=== PATIENT | female | born 1940 | race Caucasian/White ===

== ENCOUNTER 2017-07-12 13:44 | Outpatient (CLI) | payer MEDICARE ==
--- OUTSIDE RECORDS SUMMARY | 2017-07-12 13:46 | XMS | Clinical Summary ---
:1940 Author Organization [facility] Address [address] [place] [address] Phone Care Team Providers Name Role Phone , Primary Care Provider Unavailable Allergies Not on File Current Medications Not on file Active Problems Not on file Social History Tobacco Use Types Packs/Day Years Used Date Never Assessed Sex Assigned at Date Recorded Not on file Last Filed Vital Signs Not on file Plan of Treatment Not on file Results Not on filefrom Last 3 Months
--- NOTE | 2017-07-27 15:07 | MMO ---
BILATERAL SCREENING MAMMOGRAM: Indication: Annual exam. Comparison: None available. This examination with serve as patient's new baseline exam. FINDINGS: This study is interpreted with the assistance of computer aided detection. There are scattered fibroglandular elements bilaterally. There are benign appearing calcifications bilaterally. No suspicious mass or cluster of microcalcifications or architectural distortion is evident. IMPRESSION: BIRADS category 2 - benign findings. Annual screening recommended. POS: [facility]
== END 2017-07-12 13:45 | disposition home or self-care (01) ==
LOC: SCSMAMMO 13:44
PROVIDERS: ATTEND Family Medicine
DX: Z12.31 Encounter for screening mammogram for malignant neoplasm of breast (principal)
CPT/HCPCS: 77067; G0202

== ENCOUNTER 2018-02-06 14:05 | Outpatient (CLI) | payer MEDICARE ==
--- NOTE | 2018-02-06 17:48 | MRI ---
PRE AND POST CONTRAST ENHANCED MRI BRAIN: HISTORY: Headache (R51). TECHNIQUE: Pre and post contrast enhanced MRI brain obtained. FINDINGS: Images demonstrate no evidence of areas of diffusion restriction. No evidence of intracranial mass l esions seen. 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 No evidence of abnormal areas of intracranial enhancement seen. No other significant intracranial abnormalities noted. IMPRESSION: Left-sided choroidal fissure cyst; otherwise unremarkable pre and post contrast enhanced MRI brain. POS: [facility]
== END 2018-02-06 14:06 | disposition home or self-care (01) ==
LOC: SCSMRI 14:05
PROVIDERS: ATTEND Psychiatry & Neurology Neurology
DX: R51 Headache (principal); G93.0 Cerebral cysts
CPT/HCPCS: 70553; 82565

== ENCOUNTER 2019-02-20 12:44 | Outpatient (CLI) | payer MEDICARE ==
--- NOTE | 2019-02-20 13:09 | MMO ---
Bilateral MAMMO Bilat Screen DDI. CLINICAL HISTORY: Patient is 78 years old and is seen for screening. The patient has no family history of breast cancer. The patient has no personal history of cancer. VIEWS: The views performed were: bilateral craniocaudal and bilateral mediolateral oblique. FILMS COMPARED: The present examination has been compared to a prior imaging study performed at [facility] on 07/12/2017. This study has been interpreted with the assistance of computer-aided detection. MAMMOGRAM FINDINGS: There are scattered fibroglandular densities. There are no suspicious masses, suspicious calcifications, or new areas of architectural distortion. IMPRESSION: THERE IS NO MAMMOGRAPHIC EVIDENCE OF MALIGNANCY. A ROUTINE FOLLOW-UP MAMMOGRAM IN 1 YEAR IS RECOMMENDED. ACR BI-RADS Category 1 - Negative MAMMOGRAPHY NOTE: 1. A negative mammogram report should not delay a biopsy if a dominant of clinically suspicious mass is present. 2. Approximately 10% to 15% of breast cancers are not detected by mammography. 3. Adenosis and dense breasts may obscure an underlying neoplasm.
== END 2019-02-20 12:45 | disposition home or self-care (01) ==
LOC: SCSMAMMO 12:44
PROVIDERS: ATTEND Family Medicine
DX: Z12.31 Encounter for screening mammogram for malignant neoplasm of breast (principal)
CPT/HCPCS: 77067

== ENCOUNTER 2019-06-04 18:48 | Observation (INO) | payer MEDICARE ==
[2019-06-04] MEDS ORDERED: methylPREDNISolone Sod Succ/PF 125 MG/2 ML VIAL ONE ×2 (21:10→21:21)
--- NOTE | 2019-06-04 21:38 | CT ---
CT Chest WO Con: 06/04/2019 12:00 AM CLINICAL INDICATION: Productive cough. COMPARISON: None.. FINDINGS: Lung and Large Airways: There are areas of subsegmental volume loss within the right middle lobe, bot h lower lobes and lingula. There are no suspicious pulmonary nodules. There are sub-4 mm pulmonary nodules within the right lower lobe. Pleura: No effusion or mass. Vessels: There are scattered vascular calcifications involving thoracic aorta. Heart: Normal appearing. No pericardial effusion.. Mediastinum and Eli: The lack of IV contrast limits evaluation of the hilar regions. No definite enl arged mediastinal or axillary lymphadenopathy is evident. There is small hiatal hernia. Chest Wall and Lower Neck: Normal. Upper Abdomen: No acute abnormality. Bones: There is no acute fracture or subluxation. There is scattered degenerative and osteoarthritic change present. IMPRESSION: Scattered areas of nonspecific subsegmental volume loss. No airspace consolidation is evident.
[2019-06-05] MEDS ORDERED: Ondansetron ODT 4 MG TAB SL PRN (01:29)
[2019-06-05] MEDS ORDERED: Ondansetron PF 4 MG/2 ML Vial IVP PRN (01:29)
[2019-06-05] MEDS ORDERED: Bacteriostatic Water 30 ML VIAL FS PRN (01:30)
[2019-06-05 01:40] VITALS: BMI 31.5
[2019-06-05] MEDS ORDERED: Ibuprofen 200 MG TAB PO SCH (02:00)
[2019-06-05] MEDS ORDERED: Ibuprofen 200 MG TAB PO PRN (03:10)
[2019-06-05] MEDS ORDERED: Melatonin 3 MG TAB PO PRN (03:13)
[2019-06-05 05:11] LABS: #Lymphocytes 0.8 thou/uL (1.20-3.40); #Monocytes 0.3 thou/uL (0.11-0.59); #Neutrophils 7.1 thou/uL (1.40-6.50); %Eosinophils 0.3 % (0.0-10.0); %Lymphocytes 10.1 % (21.0-51.0); %Monocytes 3.2 % (0.0-10.0); %Neutrophils 86.3 % (42.0-75.0); Hemoglobin 12.9 g/dL (12.0-16.0); Mean Corpuscular Hemoglobin 31.1 pg (27.0-31.0); Mean Corpuscular Volume 91.4 fL (78.0-98.0); Mean Platelet Volume 8.8 fL (7.4-10.4); Platelet Count 222 thou/uL (130-400); RBC Distribution Width 12.8 % (11.5-14.5); Red Blood Cell (RBC) Count 4.16 mill/uL (4.20-5.40); White Blood Cell (WBC) Count 8.2 thou/uL (4.8-10.8)
[2019-06-05] MEDS: Levothyroxine 150 MCG TAB PO SCH (05:23)
[2019-06-05] MEDS: methylPREDNISolone Sod Succ 40 MG VIAL IVP SCH ×4 (05:25→23:42)
[2019-06-05 05:32] LABS: Anion Gap 18 mmol/L (10-20); BUN (Urea Nitrogen) 25 mg/dL (9.8-20.1); Calc. Creatinine Clearance 52 mL/min (70-130); Calcium 8.9 mg/dL (7.8-10.44); Carbon Dioxide 20 mmol/L (23-31); Chloride 98 mmol/L (98-107); Estimated GFR-MDRD 42; Glucose 239 mg/dL (83-110); Potassium 3.9 mmol/L (3.5-5.1); Sodium 132 mmol/L (136-145)
--- NOTE | 2019-06-05 07:32 | HP ---
PRIMARY CARE DOCTOR: Florencio Wright DO. CODE STATUS: Full code. TIME OF EVALUATION: 3 a.m. CHIEF COMPLAINT: Shortness of breath and worsening cough. HISTORY OF PRESENT ILLNESS: A 79 years old female patient, with past medical history of asthma, GERD, hypertension, hypothyroidism, sleep apnea, previous PE, osteoarthritis, and neuropathy; came to the hospital after having severe gradually worsening shortness of breath associated with epigastric chest pain that was worsened when she coughed. Symptoms have been present for the past 3 days and has been gradually getting worse. She was seen by Dr. Wright today and sent back to the for further evaluation and treatment. REVIEW OF SYSTEMS: All systems reviewed were negative except for the findings mentioned above. PAST MEDICAL HISTORY: As mentioned in the HPI. PAST SURGICAL HISTORY: Bilateral foot, left knee, back, cholecystectomy, hernia repair, hysterectomy, and tonsillectomy surgery. PSYCH HISTORY: Anxiety and depression. SOCIAL HISTORY: No drug use. No alcohol use. The patient is a former cigarette smoker, the patient quit more than 10 years ago. KNOWN ALLERGIES: Adhesive tape, Ultram, penicillins, and Tylenol. FAMILY HISTORY:Reviewed and non contributory to current presentation. REPORTED MEDICATIONS: Please see transfer papers for details. PHYSICAL EXAMINATION: VITAL SIGNS: On presentation, oxygen saturation 93% on room air, blood pressure 115/69 with heart rate 77, respiratory rate was 16, temperature 98.1. Pain was 7/10. Oxygen saturation was 96% on 2 L oxygen. GENERAL APPEARANCE: The patient is alert, oriented, not in acute distress. HEENT: Eyes; normal conjunctivae, moist oral mucosa. Anicteric. No JVD. RESPIRATORY: The patient has cough with rales that are scattered, and wheezing. Bilateral air entry is and audible. CARDIOVASCULAR: Normal rate, regular rhythm. No murmurs. No gallop. No edema. ABDOMEN: Soft, normal bowel sounds. MUSCULOSKELETAL: Baseline range of motion and strength. SKIN: Warm, intact. No pallor. No rash. No redness. Capillary refill seems to be intact. NEURO: No evidence of any new focal weakness. Cranial nerves seems to be intact. PSYCH: The patient is in good mood. No anxiety. Optimal judgment. IMAGING STUDIES: Chest AP view showed no acute cardiopulmonary abnormalities. Chest CT showed scattered areas of nonspecific subsegmental volume loss. No airspace consolidation is evident. LABORATORY DATA: Transfer papers were reviewed. Labs showed white count 11.1, hemoglobin 13.4, MCV 91, platelet count 287. CMP; sodium 134, potassium 3.7, chloride 95, carbon dioxide 28, anion gap 15, glucose 154, BUN 23, creatinine 1.7. Glomerular filtration rate is 31. ASSESSMENT AND PLAN: The patient will be placed in the hospital with following medical problems; 1. Possible chronic obstructive pulmonary disease exacerbation. The patient has a history of asthma. The patient got some antibiotics and it improves. Chest x- ray is clean. The patient will be started on nebs, steroids, and antibiotics. The patient has a V/Q scheduled for the morning that will be done. The CT chest did not show any significant abnormalities. The patient does have some pulmonary nodules and this can be followed as outpatient. We will give her oxygen support as needed. 2. The patient has a history of sleep apnea. We will place the patient on CPAP to sleep if needed. 3. Elevated D-dimer. The patient is going for V/Q and we will follow and treat accordingly. The patient really got one dose of Lovenox prior to transfer. 4. Controlled hypertension, reconcile home medications, adjust as needed. 5. Hypothyroidism. Continue hormone replacement. 6. Osteoarthritis. Reconcile home medications. 7. History of one pulmonary embolism in the past. The patient is not on any blood thinners. There is a risk for pulmonary embolism, that is why the patient is going for a V/Q. 8. Gastroesophageal reflux disease. Reconcile home medications. 9. Deep venous thrombosis prophylaxis. Job ID: [id number] [facility]
[2019-06-05] MEDS: Amlodipine 5 MG TAB PO SCH (08:32)
[2019-06-05] MEDS: Aspirin 81 mg Enteric Coated Tablet PO SCH (08:32)
[2019-06-05] MEDS: CeleCOXIB 100 MG CAP PO SCH (08:32)
[2019-06-05] MEDS: Cholestyramine/Aspartame 4 gm Packet PO SCH (08:33)
[2019-06-05] MEDS: DULoxetine 60 MG CAP PO SCH (08:34)
[2019-06-05] MEDS: Loratadine 10 MG TAB PO SCH (08:34)
[2019-06-05] MEDS: Triamterene/Hydrochlorothiazide 37.5 mg/25 mg Tablet PO SCH (08:34)
[2019-06-05] MEDS: Gabapentin 300 MG CAP PO SCH ×2 (08:34→22:14)
[2019-06-05] MEDS: Montelukast Sodium 10 mg Tablet PO SCH (08:34)
[2019-06-05] MEDS ORDERED: SODIUM BICARBONATE PO SCH (09:00)
[2019-06-05] MEDS ORDERED: MILNACIPRAN HCL 25 MG PO SCH (09:00)
[2019-06-05] MEDS ORDERED: OMEPRAZOLE PO SCH (09:00)
--- NOTE | 2019-06-05 11:35 | NM ---
VQ SCAN: DATE: 06/05/19 HISTORY: COPD exacerbation. TECHNIQUE: A ventilation perfusion scan was performed using 11.2 mCi Xenon-133 by inhalation for the ventilation scan, followed by the intravenous administration of 6 mCi technetium-99m MAA for the perfusion scan. FINDINGS: Correlation is made with the previous day's chest x-ray. Fairly homogeneous tracer distribution is seen in both lungs on the ventilation perfusion scans witho ut mismatched, pleural based, wedge-shaped, segmental or subsegmental perfusion defects. There is tra cer retention in the lungs bilaterally on the washout phase of the ventilation scan consistent with C OPD. IMPRESSION: Very low probability for pulmonary embolism. POS: [facility]
[2019-06-05] MEDS ORDERED: Zolpidem Tartrate 5 MG TAB PO SCH (21:00)
[2019-06-05] MEDS ORDERED: Losartan 25 MG TAB PO SCH (21:00)
[2019-06-06] MEDS: Levothyroxine 150 MCG TAB PO SCH (05:13)
[2019-06-06] MEDS: methylPREDNISolone Sod Succ 40 MG VIAL IVP SCH (05:13)
[2019-06-06] MEDS: Aspirin 81 mg Enteric Coated Tablet PO SCH (09:05)
[2019-06-06] MEDS: Amlodipine 5 MG TAB PO SCH (09:05)
[2019-06-06] MEDS: CeleCOXIB 100 MG CAP PO SCH (09:05)
[2019-06-06] MEDS: Cholestyramine/Aspartame 4 gm Packet PO SCH (09:06)
[2019-06-06] MEDS: Montelukast Sodium 10 mg Tablet PO SCH (09:06)
[2019-06-06] MEDS: Gabapentin 300 MG CAP PO SCH (09:06)
[2019-06-06] MEDS: DULoxetine 60 MG CAP PO SCH (09:06)
[2019-06-06] MEDS: Loratadine 10 MG TAB PO SCH (09:06)
[2019-06-06] MEDS: Triamterene/Hydrochlorothiazide 37.5 mg/25 mg Tablet PO SCH (09:07)
[2019-06-06 12:22] VITALS: BP 127/60; TEMP 97.8
--- NOTE | 2019-06-09 15:01 | EKG ---
Test Reason : Blood Pressure : / mmHG Vent. Rate : 077 BPM Atrial Rate : 077 BPM P-R Int : 148 ms QRS Dur : 072 ms QT Int : 414 ms P-R-T Axes : 015 -14 011 degrees QTc Int : 468 ms Normal sinus rhythm Normal ECG Confirmed by MEGHA MELENDEZ ([id number]), supervising editor trailer RAMONE RASHID ([id number]) on 06/09/2019 3:01:32 PM Referred By: Confirmed By:MEGHA MELENDEZ
== END 2019-06-06 13:52 | disposition home or self-care (01) ==
LOC: ERS 18:48 → 2SW 23:05
PROVIDERS: ADMIT Hospitalist; ATTEND Hospitalist
DX: R06.02 Shortness of breath (principal); R05 Cough; I10 Essential (primary) hypertension; E03.9 Hypothyroidism, unspecified; G47.30 Sleep apnea, unspecified; K21.9 Gastro-esophageal reflux disease without esophagitis; M19.90 Unspecified osteoarthritis, unspecified site; G62.9 Polyneuropathy, unspecified; F41.8 Other specified anxiety disorders; F32.9 Major depressive disorder, single episode, unspecified; J45.909 Unspecified asthma, uncomplicated; Z87.891 Personal history of nicotine dependence; Z88.0 Allergy status to penicillin; Z88.5 Allergy status to narcotic agent; Z88.6 Allergy status to analgesic agent; Z91.048 Other nonmedicinal substance allergy status
CPT/HCPCS: 71250; 78582; 80048; 83880; 84484; 85025; 93005; 94640 ×3; 94760; 96365; 96366; 96375; 96376 ×2; 99285; A9540; A9558; G0378 ×4; 36415; 96374; J1956; J2920; J2930; J7620

== ENCOUNTER 2019-09-12 09:03 | Outpatient (CLI) | payer MEDICARE ==
--- NOTE | 2019-09-12 09:24 | RAD ---
Left shoulder 3 views HISTORY: Fall. Left shoulder injury and pain. FINDINGS: Acromioclavicular and glenohumeral alignment are maintained. No acute fracture or dislocati on. No aggressive osseous erosions. Calcification over the aortic arch. Extrinsic artifact over the partially visualized right chest. IMPRESSION: No acute osseous abnormalities are demonstrated. Atherosclerosis.
== END 2019-09-12 09:04 | disposition home or self-care (01) ==
LOC: SCSRAD 09:03
PROVIDERS: ATTEND Family Medicine
DX: S46.002A Unspecified injury of muscle(s) and tendon(s) of the rotator cuff of left shoulder, initial encounter (principal); I70.90 Unspecified atherosclerosis

== ENCOUNTER 2020-04-21 05:27 | Outpatient (CLI) | payer MEDICARE, OTHER ==
[2020-04-21 11:09] LABS: Hemoglobin 13.8 g/dL (12.0-16.0); Mean Corpuscular HGB CONC 33.7 g/dL (32.0-36.0); Mean Corpuscular Hemoglobin 31.3 pg (27.0-31.0); Mean Corpuscular Volume 92.8 fL (78.0-98.0); Mean Platelet Volume 10.5 fL (7.4-10.4); Platelet Count 263 thou/uL (130-400); RBC Distribution Width 12.4 % (11.5-14.5); White Blood Cell (WBC) Count 9.1 thou/uL (4.8-10.8)
[2020-04-21 11:14] LABS: INR-International Normal Ratio 0.9; PTT 29.1 sec (22.9-36.1); Prothrombin Time 12.3 sec (12.0-14.7)
[2020-04-21 12:39] LABS: Anion Gap 16 mmol/L (10-20); BUN (Urea Nitrogen) 18 mg/dL (9.8-20.1); Calc. Creatinine Clearance 0 mL/min (70-130); Calcium 9.7 mg/dL (7.8-10.44); Carbon Dioxide 25 mmol/L (23-31); Chloride 101 mmol/L (98-107); Estimated GFR-MDRD 49; Glucose 105 mg/dL (83-110); Potassium 3.4 mmol/L (3.5-5.1); Sodium 139 mmol/L (136-145)
--- NOTE | 2020-04-21 17:51 | EKG ---
Test Reason : Blood Pressure : / mmHG Vent. Rate : 090 BPM Atrial Rate : 090 BPM P-R Int : 156 ms QRS Dur : 072 ms QT Int : 352 ms P-R-T Axes : 042 -12 034 degrees QTc Int : 430 ms Normal sinus rhythm Normal ECG When compared with ECG of 04-JUN-2019 21:24, No significant change was found Confirmed by JILLIAN LEONARD, SIsi ([id number]) on 04/21/2020 5:51:14 PM Referred By: REYMUNDO Confirmed By:DR. Adiel WALSH MD
[2020-04-22 13:10] LABS: SARS-CoV-2 MS2 Positive; SARS-CoV-2 N Gene Negative; SARS-CoV-2 S Gene Negative; SARS-CoV-2 orf1ab Negative
== END 2020-04-21 05:28 | disposition home or self-care (01) ==
LOC: LABBT 05:27
PROVIDERS: ATTEND Surgery
DX: Z01.818 Encounter for other preprocedural examination (principal); Z11.59 Encounter for screening for other viral diseases; M54.16 Radiculopathy, lumbar region; M48.061 Spinal stenosis, lumbar region without neurogenic claudication
CPT/HCPCS: 80048; 85027; 85610; 85730; 93005; U0003; 87635; 93010

== ENCOUNTER 2020-04-24 07:56 | Day surgery (SDC) | payer MEDICARE ==
[2020-04-24] MEDS ORDERED: Levofloxacin 500 mg/D5W 100 ml Premix Bag ONE (08:06)
[2020-04-24] MEDS ORDERED: Clindamycin/D5W 900 mg/50 ml Premix Bag ONE (08:06)
[2020-04-24] MEDS ORDERED: Thrombin 5000 UNITS/5 ML VIAL ONE (08:47)
[2020-04-24] MEDS ORDERED: Fentanyl 100 MCG/2 ML VIAL ONE ×2 (09:22→12:35)
[2020-04-24] MEDS ORDERED: SUGAMMADEX SODIUM 200 MG/2 ML VIAL ONE (10:22)
[2020-04-24] MEDS ORDERED: Glycopyrrolate 0.2 MG/ML 5 ML SYRINGE ONE (11:17)
[2020-04-24] MEDS ORDERED: Lidocaine 1% PF 5 ML VIAL ONE (11:17)
[2020-04-24] MEDS ORDERED: PROPOFOL 200 MG/20 ML VIAL ONE (11:17)
[2020-04-24] MEDS ORDERED: Rocuronium Bromide 10 MG/ML (10ML VIAL) ONE (11:17)
[2020-04-24] MEDS ORDERED: PHENYLEPHRINE-NS 100 MCG/ML 10 ML SYRINGE ONE (11:17)
[2020-04-24] MEDS ORDERED: EPHEDRINE 25 MG/5 ML SYRINGE ONE (11:17)
[2020-04-24] MEDS ORDERED: Bisacodyl 10 MG SUPP PR PRN (12:13)
[2020-04-24] MEDS ORDERED: Ondansetron PF 4 MG/2 ML Vial IVP PRN (12:13)
[2020-04-24] MEDS ORDERED: Mag-Al 1200 mg/1200 mg/30 ML UDCUP PO PRN (12:13)
[2020-04-24] MEDS ORDERED: diphenhydrAMINE 25 MG CAP PO PRN (12:13)
[2020-04-24] MEDS ORDERED: Milk Of Magnesia 30 ML UDCUP PO PRN (12:13)
[2020-04-24] MEDS ORDERED: Fleet Enema 133 ML BOT PR PRN (12:13)
[2020-04-24] MEDS ORDERED: Melatonin 3 MG TAB PO PRN (12:17)
[2020-04-24] MEDS ORDERED: ALBUTEROL SULFATE 90 MCG INH PRN (12:17)
[2020-04-24] MEDS ORDERED: hydrALAZINE 20 MG/ML VIAL SLOW IVP PRN (12:18)
[2020-04-24 15:30] VITALS: BMI 33.8
[2020-04-24] MEDS: Clindamycin/D5W 900 MG in Premix Bag 1 BAG IVPB SCH ×2 (15:58→23:17)
--- NOTE | 2020-04-24 17:07 | OP ---
DATE OF PROCEDURE: 04/24/2020 LOCATION: OR 12. SURGEON: Dameon Vitale MD BUFFING MACHINE TENDER: Trinity Garcia PA-C PREPROCEDURE DIAGNOSIS: L4-S1 stenosis with low back and leg pain. POSTPROCEDURE DIAGNOSIS: L4-S1 stenosis with low back and leg pain. PROCEDURES PERFORMED: L4-L5 and L5-S1 laminectomies, partial facetectomies, and foraminotomies. DESCRIPTION OF PROCEDURE: After informed consent was obtained from the patient, the patient was brought to the OR. Proper patient, pause, and identification were carried out. She was placed under excellent general endotracheal anesthesia and positioned prone on the OR table. All appropriate points were padded. We identified L4-L5 and L5-S1 dorsal spines. A linear edmar was made in this region. This area was sterilely cleansed, prepared, and draped. Proper patient, pause, and identification were carried out. The wound was then opened with combination of sharp, monopolar, and blunt dissection. The L4, L5, S1 dorsal spines and lamina were exposed. Localization film confirmed area of interest and performed L4-L5 and L5-S1 laminectomies, partial facetectomies, and foraminotomies. Copious irrigation occurred throughout as did maximizing hemostasis. The wound was then closed in anatomic layers following sprinkling of vancomycin powder. The patient emerged from anesthesia. Job ID: [id number]
[2020-04-24] MEDS: tiZANidine HCl 4 MG TAB PO PRN (18:09)
[2020-04-24] MEDS: Morphine 2 MG/ML VIAL SLOW IVP PRN ×3 (18:09→23:24)
[2020-04-24] MEDS: Vit A,C & E/Lutein/Minerals Tablet PO SCH (20:36)
[2020-04-24] MEDS: Losartan 25 MG TAB PO SCH (20:36)
[2020-04-24] MEDS: Zolpidem Tartrate 5 MG TAB PO SCH (20:36)
[2020-04-24] MEDS: Gabapentin 300 MG CAP PO SCH (20:36)
[2020-04-24] MEDS: Sodium Chloride 0.9% 1,000 ML IV SCH (20:43)
[2020-04-24] MEDS ORDERED: MILNACIPRAN HCL 25 MG PO SCH (21:00)
[2020-04-24] MEDS: Ketorolac Tromethamine 30 MG/ML VIAL IVP PRN (23:25)
[2020-04-25] MEDS: Sodium Chloride 0.9% 1,000 ML IV SCH ×2 (00:39→15:41)
[2020-04-25] MEDS: Morphine 2 MG/ML VIAL SLOW IVP PRN (03:44)
[2020-04-25] MEDS: tiZANidine HCl 4 MG TAB PO PRN ×2 (03:52→15:55)
[2020-04-25] MEDS: Levothyroxine 150 MCG TAB PO SCH (05:58)
[2020-04-25] MEDS: Ketorolac Tromethamine 30 MG/ML VIAL IVP PRN ×2 (06:00→11:35)
[2020-04-25] MEDS: Vit A,C & E/Lutein/Minerals Tablet PO SCH ×2 (07:59→21:01)
[2020-04-25] MEDS: Cholecalciferol 1,000 UNITS (25 MCG) TAB PO SCH (07:59)
[2020-04-25] MEDS: Amlodipine 5 MG TAB PO SCH (08:00)
[2020-04-25] MEDS: Gabapentin 300 MG CAP PO SCH ×2 (08:00→21:02)
[2020-04-25] MEDS: Loratadine 10 MG TAB PO SCH (08:00)
[2020-04-25] MEDS: Triamterene/Hydrochlorothiazide 37.5 mg/25 mg Tablet PO SCH (08:01)
[2020-04-25] MEDS: traMADol HCl 50 MG TAB PO PRN ×2 (09:30→15:55)
--- NOTE | 2020-04-25 10:07 | PRG ---
DATE OF SERVICE: 04/25/2020 Ms. Boyd is postoperative day 1 from lumbar decompression. She has had improvement in her leg pain compared to before surgery, she has had difficulty mobilizing and decreased blood pressure of 80/40 following the administration of morphine. We will watch her more today and she has a Tylenol allergy, so we will use Toradol and tramadol to try and control her pain. We will place an inpatient rehab consultation. Otherwise, she is doing very well. Job ID: [id number]
[2020-04-25] MEDS: Zolpidem Tartrate 5 MG TAB PO SCH (21:03)
[2020-04-25] MEDS: Losartan 25 MG TAB PO SCH (21:18)
[2020-04-26] MEDS: Morphine 2 MG/ML VIAL SLOW IVP PRN (03:55)
[2020-04-26] MEDS: Levothyroxine 150 MCG TAB PO SCH (05:03)
[2020-04-26] MEDS: tiZANidine HCl 4 MG TAB PO PRN ×2 (05:03→13:36)
[2020-04-26] MEDS: Sodium Chloride 0.9% 1,000 ML IV SCH (05:43)
[2020-04-26 07:52] VITALS: TEMP 98
[2020-04-26] MEDS: Vit A,C & E/Lutein/Minerals Tablet PO SCH (08:26)
[2020-04-26] MEDS: Cholecalciferol 1,000 UNITS (25 MCG) TAB PO SCH (08:26)
[2020-04-26] MEDS: Amlodipine 5 MG TAB PO SCH (08:27)
[2020-04-26] MEDS: Gabapentin 300 MG CAP PO SCH (08:27)
[2020-04-26] MEDS: Triamterene/Hydrochlorothiazide 37.5 mg/25 mg Tablet PO SCH (08:27)
[2020-04-26] MEDS: Loratadine 10 MG TAB PO SCH (08:27)
[2020-04-26] MEDS ORDERED: Dexamethasone 4 mg/ml Vial SLOW IVP SCH (11:30)
[2020-04-26 11:38] VITALS: BP 115/72
--- NOTE | 2020-04-26 11:48 | PRG ---
DATE OF SERVICE: 04/26/2020 Ms. Boyd is doing better today. She has walked with physical therapy. She does have low back and buttock pain and I suspect she will benefit from some Decadron. We are on inpatient rehab. Job ID: [id number]
== END 2020-04-26 14:20 ==
LOC: SDC 07:56 → SJJU 12:19 → SDC 04-26 14:20
PROVIDERS: ATTEND Surgery
PROC: 01NB0ZZ Release Lumbar Nerve, Open Approach (ICD-10-PCS; principal; 2020-04-24)
DX: M48.062 Spinal stenosis, lumbar region with neurogenic claudication (principal); M54.16 Radiculopathy, lumbar region; Z79.82 Long term (current) use of aspirin; Z79.899 Other long term (current) drug therapy; Z88.0 Allergy status to penicillin; Z88.6 Allergy status to analgesic agent; Z88.8 Allergy status to other drugs, medicaments and biological substances; Z91.048 Other nonmedicinal substance allergy status
CPT/HCPCS: 63047; 63048; 76000; 97110; 97116; J2270 ×2; J1100; J1885; J1956; J2704; J3010; J3370; J3490

== ENCOUNTER 2021-03-06 13:53 | Outpatient (CLI) | payer MEDICARE | END 2021-03-06 13:54 | disposition home or self-care (01) | LOC: BICMAMMO 13:53 | PROVIDERS: ATTEND Internal Medicine Rheumatology | DX: M81.0 Age-related osteoporosis without current pathological fracture (principal); M25.552 Pain in left hip; M85.89 Other specified disorders of bone density and structure, multiple sites | CPT/HCPCS: 77080 ==

== ENCOUNTER 2023-11-22 12:34 | Outpatient (CLI) | payer MEDICARE | END 2023-11-22 12:35 | disposition home or self-care (01) | LOC: SCSMRI 12:34 | PROVIDERS: ATTEND Physician Assistant Medical | DX: K58.9 Irritable bowel syndrome, unspecified (principal); R11.0 Nausea; R93.3 Abnormal findings on diagnostic imaging of other parts of digestive tract; K86.2 Cyst of pancreas | CPT/HCPCS: 74183 ==

== ENCOUNTER 2025-07-02 09:43 | Outpatient (CLI) | payer MEDICARE | END 2025-07-02 09:44 | disposition home or self-care (01) | LOC: RAD 09:43 | PROVIDERS: ATTEND Family Medicine | DX: R13.10 Dysphagia, unspecified (principal); K21.9 Gastro-esophageal reflux disease without esophagitis | CPT/HCPCS: 74230 ==